=== PATIENT | female | born 1960 | race Caucasian/White ===

== ENCOUNTER 2017-02-10 18:09 | Emergency (ER) | payer OTHER ==
--- NOTE | 2017-02-10 19:06 | DIAGNOSTIC IMAGING REPORT ---
PROCEDURE: CT HEAD WITHOUT CONTRAST INDICATION: TRAUMA/INJURY TECHNIQUE: Noncontrast axial images with sagittal and coronal reformations. COMPARISON: Compared to a head CT and 06/07/2012. FINDINGS: There is evidence of mild old small vessel changes of the left frontal white matter (no change). Brain and ventricles are otherwise normal. No evidence of an acute process or hemorrhage. Sinuses and mastoids are normal. IMPRESSION: 1. Mild old small vessel changes of the left frontal white matter. Otherwise negative head CT. No evidence of intracranial injury. 2. Findings discussed with KASI Merlos at [address] scans at this facility use dose modulation, iterative reconstruction, and/or weight-based dosing when appropriate to reduce radiation dose to as low as reasonably achievable.
--- NOTE | 2017-02-10 20:37 | DIAGNOSTIC IMAGING REPORT ---
PROCEDURE: XR ANKLE 3 OR 4 VIEWS - LEFT INDICATION: TRAUMA/INJURY TECHNIQUE: Four views. COMPARISON: None. FINDINGS: There is a 9 mm dystrophic ossification lateral to the lateral malleolus, with possible old osteotomy of the distal fibula. Osseous structures and joint spaces are otherwise normal. IMPRESSION: 1. Findings suggest post-traumatic and possible postoperative changes of the left ankle. 2. Otherwise negative left ankle. No evidence of fracture.
--- NOTE | 2017-02-10 20:58 | DIAGNOSTIC IMAGING REPORT ---
PROCEDURE: XR FOOT 3 VIEWS - RIGHT INDICATION: TRAUMA/INJURY TECHNIQUE: Three views. COMPARISON: None. FINDINGS: There are mild degenerative changes of the right midfoot. Osseous structures and joint spaces are otherwise normal. There is marked soft tissue swelling of the dorsum of the right foot (suggest primary lymphedema). IMPRESSION: 1. Mild degenerative change of the right midfoot. 2. Soft tissue swelling of the dorsum of the right foot suggest primary lymphedema. 3. Otherwise negative right foot. 4. Findings discussed with KASI Merlos.
--- NOTE | 2017-02-10 21:12 | ED NURSING NOTES ---
Clinical Report - Nurses [facility] [address] [place] [address] 02/10/2017 18:09 Patient: JACOBY DEL VALLE TRIAGE Triage time 18:19. Acuity: LEVEL 4. Chief Complaint: FALL while walking, onto a hard surface and landed on their head; became dizzy (GLF). Alert. No acute distress. ( Pt. states she has a hx of getting dizzy and "passing out" every time she changed position from sitting to standing. Today she was getting out of the chair when she become dizzy and fell to the ground hitting her head on the buffet. Pt. states she does remembers getting dizzy but does not remember hitting her head. Pt. states, " I just woke up on the floor and was like oh man my head hurts and then my foot started hurting."). SEPSIS SCREEN: Sepsis Screen. Negative (no infection suspected/documented). [place] COMA SCORE: [place] Coma Scale: 15- eyes open spontaneously (4); best verbal response- oriented x 4 (5); best motor response- obeys commands (6). --18:30 Kathia Morse R.N. 18:19 02/10/17. BP: 121/85. HR: 81. RR: 18. O2 saturation: 97%. Temp: 98.5 F. Pain level now 9/10. --18:30 Kathia Morse R.N. ( Pt. states she has been having these "dizzy episodes for 10 years."). --18:35 Penny Renee R.N. Weight: 148.3 kg stated. Height/Length: 64 inches Per Patient. BMI: 56.2. --18:27 Kathia Morse R.N. Medications Atorvastatin Calcium Oral 40 mg, daily. --18:31 Penny Renee R.N. BuPROPion HBr Oral daily. FLUoxetine HCl Oral 90mg, daily. Gabapentin Oral 750mg, 3x a day. HumaLOG Subcutaneous. Lantus Subcutaneous. Lasix Oral 40 mg, daily. Levothyroxine Sodium Oral 1000mcg, daily. Losartan Potassium Oral 25 mg, daily. Metoprolol Tartrate Oral 50 mg, daily. Naproxen Oral 250 mg, Q12H. Omeprazole Oral 40 mg, 2x a day. --18:31 Penny Renee R.N. Flonase Nasal. --18:31 Penny Renee R.N. Albuterol Sulfate Inhalation. --18:31 Penny Renee R.N. The following entry was struck and corrected by Penny Renee R.N., 18:42 (02/10/17) Reason for correction - other(correction). <<STRICKEN ENTRY-- Omeprazole Oral. --18:31 Penny Renee R.N. --END STRIKE>> The following entry was struck and corrected by Penny Renee R.N., 18:41 (02/10/17) Reason for correction - other(correction). <<STRICKEN ENTRY-- Naproxen Oral. --18:31 Penny Renee R.N. --END STRIKE>> The following entry was struck and corrected by Penny Renee R.N., 18:41 (02/10/17) Reason for correction - other(correction). <<STRICKEN ENTRY-- Metoprolol Tartrate Oral. --18:31 Penny Renee R.N. --END STRIKE>> The following entry was struck and corrected by Penny Renee R.N., 18:41 (02/10/17) Reason for correction - other(correction). <<STRICKEN ENTRY-- Losartan Potassium Oral. --18:31 Penny Renee R.N. --END STRIKE>> The following entry was struck and corrected by Penny Renee R.N., 18:40 (02/10/17) Reason for correction - other(correction). <<STRICKEN ENTRY-- Levothyroxine Sodium Oral. --18:31 Penny Renee R.N. --END STRIKE>> The following entry was struck and corrected by Penny Renee R.N., 18:40 (02/10/17) Reason for correction - other(correction). <<STRICKEN ENTRY-- Lasix Oral. --18:31 Penny Renee R.N. --END STRIKE>> The following entry was struck and corrected by Penny Renee R.N., 18:40 (02/10/17) Reason for correction - other(correction). <<STRICKEN ENTRY-- Gabapentin Oral. --18:31 Penny Renee R.N. --END STRIKE>> The following entry was struck and corrected by Penny Renee R.NJones, 18:39 (02/10/17) Reason for correction - other(correction). <<STRICKEN ENTRY-- FLUoxetine HCl Oral. --18:31 Penny Renee R.N. --END STRIKE>> The following entry was struck and corrected by Penny Renee R.N., 18:39 (02/10/17) Reason for correction - other(correction). [facility] BuPROPion HBr Oral. --18:31 Penny Renee R.N. --END STRIKE>> The following entry was struck and corrected by Penny Renee R.N., 18:39 (02/10/17) Reason for correction - other(correction). <<STRICKEN ENTRY-- Atorvastatin Calcium Oral. --18:31 Penny Renee R.N. --END STRIKE>>. Allergies Morphine Sulfate. Definite Severe(anxiety, confusion) Sulfa Antibiotics. --18:31 Penny Renee R.N. Vancomycin. --18:31 Penny Renee R.N. History Arrived by private vehicle. Historian: patient. Accompanied by family. Primary physician (Dr. Elliott). Location of injuries: right parietal area, right foot and left foot. This occurred today. Treatment YOUTH CARE WORKER: None. PAST MEDICAL HX: Immunizations: up-to-date. SOCIAL HX: Never smoker. Alcohol use. (stopped drink at age 42). History of drug use: narcotics. ABUSE ASSESSMENT: Abuse assessment: The patient was asked "Do you feel safe in your home?" and "Has anyone hurt you or threatened to hurt you?". No report of abuse. SELF HARM ASSESSMENT: A self harm assessment was performed. The patient answered "no" to the question "Do you have thoughts of harming or killing yourself?" and "Have you recently had thoughts about harming or killing others?". NUTRITIONAL RISK ASSESSMENT: The nutritional risk assessment revealed no deficiencies. FUNCTIONAL ASSESSMENT: Functional assessment: no impairments noted. LEARNING NEEDS ASSESSMENT: The learning needs assessment revealed no barriers. FALL RISK ASSESSMENT: Fall risk assessment completed. Risk factors identified include dizziness and patient history of fall and impairment of mobility. Fall interventions initiated. Side rails up x2. Brakes on Bed in low position. Patient visible from nurses' station and identified as a fall risk by ID band. Family at bedside. Child being held by parent. Call light in reach of patient. Instructed not to get up without assistance. --18:30 Kathia Morse R.N. PROBLEMS: Contusion. Fall. Hypoglycemia. CVA - Cerebrovascular Accident. Thyroid Disease. GI Disease. Costochondritis. Abdominal Pain. Flank Pain. PICC line infection, treated with Vanco, but is now allergic to that. Neck Pain. Lumbar Strain. Back Pain. Gastroenteritis. Depression. Chest Wall Pain. Diarrhea. Knee Injury. Crohn's Disease. Obesity. Acute Pain. Headache. Diabetes Mellitus. --18:32 Penny Renee R.N. ADDITIONAL SURGERIES: Abdominoplasty. Breast reduction. Hysterectomy. Knee Surgery. Neck Surgery. Oophorectomy. Salpingectomy. Shoulder Surgery. Tonsillectomy. --18:32 Penny Renee R.N. Interventions ID band on patient. --18:30 Kathia Morse R.N. PHYSICAL ASSESSMENT To room via wheelchair. GENERAL / NEURO / PSYCH: Alert. Appears in no acute distress. RESPIRATORY: Respirations not labored. CVS: Capillary refill less than 2 seconds. EXTREMITIES: Bilateral 1+ pitting edema of the lower extremities. pulses WNL. SKIN: Skin intact. Skin is warm and dry. --18:34 Penny Renee R.N. NURSING PROGRESS NOTES Two patient identifiers checked. Call light placed in reach. Side rails up x 2. Bed placed in lowest position. Brakes of bed on. Patient ready for evaluation- chart flagged. --18:34 Penny Renee R.N. shelter monitor, pulse oximeter and NIBP monitor placed on patient; cardiac nurse- Lead II; monitor alarms on. --18:34 Penny Renee R.N. EKG time: (1826). EKG was ordered, performed by a tech and shown to the ED physician. --18:34 Penny Renee R.N. 18:46 02/10/2017 Site #1 started via IV in the left hand with an 22g angiocath, with aseptic technique and good blood return; one attempt. Blood drawn: rainbow set. Labeled in the presence of the patient and sent to the lab. Saline lock flushed with 10 mL saline (accessed by ANA Bae). --18:46 Penny Renee R.N. Point of care testing: performed by nurse. Glucose: 129. Result shown to the ED physician. --18:47 Penny Renee R.N. Patient transported to NE by stretcher with tech. --18:47 Penny Renee R.N. 19:21. Care transferred and report received. --19:21 Mateo Lorenzo R.N. 19:30 Patient standing at bedside with technical support associate orthostatic BP in process. --19:30 Mateo Lorenzo R.N. 19:36 02/10/17. BP: 121/85 (regular adult cuff) taken on the left arm, while lying. HR: 78. O2 saturation: 95% on room air. --19:47 Marilyn Harp 19:35 02/10/17. BP: 124/76 (regular adult cuff) taken on the left arm, while sitting. HR: 78. O2 saturation: 96% on room air. --19:49 Marilyn Harp 19:38 02/10/17. BP: 139/106 taken on the left arm, while standing. HR: 106. O2 saturation: 89% on room air. --19:51 Marilyn Harp 20:56 02/10/17. BP: 111/55 taken on the left arm, while lying. HR: 80. RR: 18. O2 saturation: 95% on room air. Temp: 97.8 F (oral). --20:58 Marilyn Harp 21:10 02/10/2017 Hydrocodone-APAP (Hydrocodone-Acetaminophen) PO 5/325 mg Tablets 1 tab given. Allergies verified, confirmed 5 rights and sedative warning given to the patient. --21:15 Mateo Lorenzo R.N. 21:44 02/10/2017 Started bag #1 1000 mL IV Fluids IV NS (Saline); bolus of 1000 mL over 1 hour(s) via site #1. Allergies verified and confirmed 5 rights. IV patency established. IV site checked: no pain, redness, or swelling. IV flushed thoroughly pre- and post-medication administration. --21:44 Tasneem Bernard R.N. 21:55 02/10/2017 Toradol IVP 30 mg given over 2 minute(s) via site #1. Allergies verified and confirmed 5 rights. IV patency established. IV site checked: no pain, redness, or swelling. IV flushed thoroughly pre- and post-medication administration. --21:59 Mateo Lorenzo R.N. 23:30. The patient is calm and resting quietly. GENERAL / NEURO / PSYCH: Alert. Oriented X 4. RESPIRATORY: No respiratory distress. EXTREMITIES: Neuro-vascular status intact to the extremity. --23:33 Mateo Lorenzo R.N. DISPOSITION / DISCHARGE 23:22 02/10/2017 IV Fluids IV NS Discontinued: bag #1 infused upon discharge. Total amount infused: 1000 mL. IV patency established. IV site checked: no pain, redness, or swelling. IV flushed thoroughly. --23:28 Mateo Lorenzo R.N. 23:25 02/10/2017 Site #1 removed upon discharge. Catheter intact. Bandage applied. --23:27 Mateo Lorenzo R.N. Departure time: 23:32. Condition at departure: stable. No learning barriers present. Discharge instructions provided and reviewed with the patient. Reviewed medication(s) side effects, precautions, dosing and course information. Prescription(s) given to the patient. Patient verbalized understanding. Written instructions provided in Thai. The patient was discharged home and accompanied by family. She left the Emergency Department ambulatory and via private vehicle. Family member driving. FALL RISK ASSESSMENT: Fall risk assessment completed. No fall risk identified. --23:32 Mateo Lorenzo R.N. 23:27 02/10/17. BP: 113/45. HR: 64. RR: 16. O2 saturation: 95% on room air. Pain level now: 03/18. --23:32 Mateo Lorenzo R.N. Locked/Released at 02/11/2017 2:50 by Mateo Lorenzo R.N.
--- NOTE | 2017-02-10 21:12 | ED NURSING NOTES ---
Clinical Report - Nurses [facility] [address] [place] [address] 02/10/2017 18:09 Patient: JACOBY DEL VALLE TRIAGE Triage time 18:19. Acuity: LEVEL 4. Chief Complaint: FALL while walking, onto a hard surface and landed on their head; became dizzy (GLF). Alert. No acute distress. ( Pt. states she has a hx of getting dizzy and "passing out" every time she changed position from sitting to standing. Today she was getting out of the chair when she become dizzy and fell to the ground hitting her head on the buffet. Pt. states she does remembers getting dizzy but does not remember hitting her head. Pt. states, " I just woke up on the floor and was like oh man my head hurts and then my foot started hurting."). SEPSIS SCREEN: Sepsis Screen. Negative (no infection suspected/documented). AZALEA COMA SCORE: [place] Coma Scale: 15- eyes open spontaneously (4); best verbal response- oriented x 4 (5); best motor response- obeys commands (6). --18:30 Kathia Morse R.N. 18:19 02/10/17. BP: 121/85. HR: 81. RR: 18. O2 saturation: 97%. Temp: 98.5 F. Pain level now 9/10. --18:30 Kathia Morse R.N. ( Pt. states she has been having these "dizzy episodes for 10 years."). --18:35 Penny Renee R.N. Weight: 148.3 kg stated. Height/Length: 64 inches Per Patient. BMI: 56.2. --18:27 Kathia Morse R.N. Medications Atorvastatin Calcium Oral 40 mg, daily. --18:31 Penny Renee R.N. BuPROPion HBr Oral daily. FLUoxetine HCl Oral 90mg, daily. Gabapentin Oral 750mg, 3x a day. HumaLOG Subcutaneous. Lantus Subcutaneous. Lasix Oral 40 mg, daily. Levothyroxine Sodium Oral 1000mcg, daily. Losartan Potassium Oral 25 mg, daily. Metoprolol Tartrate Oral 50 mg, daily. Naproxen Oral 250 mg, Q12H. Omeprazole Oral 40 mg, 2x a day. --18:31 Penny Renee R.N. Flonase Nasal. --18:31 Penny Renee R.N. Albuterol Sulfate Inhalation. --18:31 Penny Renee R.N. The following entry was struck and corrected by Penny Renee R.N., 18:42 (02/10/17) Reason for correction - other(correction). <<STRICKEN ENTRY-- Omeprazole Oral. --18:31 Penny Renee R.N. --END STRIKE>> The following entry was struck and corrected by Penny Renee R.N., 18:41 (02/10/17) Reason for correction - other(correction). <<STRICKEN ENTRY-- Naproxen Oral. --18:31 Penny Renee R.N. --END STRIKE>> The following entry was struck and corrected by Penny Renee R.N., 18:41 (02/10/17) Reason for correction - other(correction). <<STRICKEN ENTRY-- Metoprolol Tartrate Oral. --18:31 Penny Renee R.N. --END STRIKE>> The following entry was struck and corrected by Penny Renee R.N., 18:41 (02/10/17) Reason for correction - other(correction). <<STRICKEN ENTRY-- Losartan Potassium Oral. --18:31 Penny Renee R.N. --END STRIKE>> The following entry was struck and corrected by Penny Renee R.N., 18:40 (02/10/17) Reason for correction - other(correction). <<STRICKEN ENTRY-- Levothyroxine Sodium Oral. --18:31 Penny Renee R.N. --END STRIKE>> The following entry was struck and corrected by Penny Renee R.N., 18:40 (02/10/17) Reason for correction - other(correction). <<STRICKEN ENTRY-- Lasix Oral. --18:31 Penny Rneee R.N. --END STRIKE>> The following entry was struck and corrected by Penny Renee R.N., 18:40 (02/10/17) Reason for correction - other(correction). <<STRICKEN ENTRY-- Gabapentin Oral. --18:31 Penny Renee R.N. --END STRIKE>> The following entry was struck and corrected by Penny Renee R.NJones, 18:39 (02/10/17) Reason for correction - other(correction). <<STRICKEN ENTRY-- FLUoxetine HCl Oral. --18:31 Penny Renee R.N. --END STRIKE>> The following entry was struck and corrected by Penny Renee R.N., 18:39 (02/10/17) Reason for correction - other(correction). [facility] Bu[facility]Br Oral. --18:31 Penny Renee R.N. --END STRIKE>> The following entry was struck and corrected by Penny Renee R.N., 18:39 (02/10/17) Reason for correction - other(correction). <<STRICKEN ENTRY-- Atorvastatin Calcium Oral. --18:31 Penny Renee R.N. --END STRIKE>>. Allergies Morphine Sulfate. Definite Severe(anxiety, confusion) Sulfa Antibiotics. --18:31 Penny Renee R.N. Vancomycin. --18:31 Penny Renee R.N. History Arrived by private vehicle. Historian: patient. Accompanied by family. Primary physician (Dr. Elliott). Location of injuries: right parietal area, right foot and left foot. This occurred today. Treatment TROMPER: None. PAST MEDICAL HX: Immunizations: up-to-date. SOCIAL HX: Never smoker. Alcohol use. (stopped drink at age 42). History of drug use: narcotics. ABUSE ASSESSMENT: Abuse assessment: The patient was asked "Do you feel safe in your home?" and "Has anyone hurt you or threatened to hurt you?". No report of abuse. SELF HARM ASSESSMENT: A self harm assessment was performed. The patient answered "no" to the question "Do you have thoughts of harming or killing yourself?" and "Have you recently had thoughts about harming or killing others?". NUTRITIONAL RISK ASSESSMENT: The nutritional risk assessment revealed no deficiencies. FUNCTIONAL ASSESSMENT: Functional assessment: no impairments noted. LEARNING NEEDS ASSESSMENT: The learning needs assessment revealed no barriers. FALL RISK ASSESSMENT: Fall risk assessment completed. Risk factors identified include dizziness and patient history of fall and impairment of mobility. Fall interventions initiated. Side rails up x2. Brakes on Bed in low position. Patient visible from nurses' station and identified as a fall risk by ID band. Family at bedside. Child being held by parent. Call light in reach of patient. Instructed not to get up without assistance. --18:30 Kathia Morse R.N. PROBLEMS: Contusion. Fall. Hypoglycemia. CVA - Cerebrovascular Accident. Thyroid Disease. GI Disease. Costochondritis. Abdominal Pain. Flank Pain. PICC line infection, treated with Vanco, but is now allergic to that. Neck Pain. Lumbar Strain. Back Pain. Gastroenteritis. Depression. Chest Wall Pain. Diarrhea. Knee Injury. Crohn's Disease. Obesity. Acute Pain. Headache. Diabetes Mellitus. --18:32 Penny Renee R.N. ADDITIONAL SURGERIES: Abdominoplasty. Breast reduction. Hysterectomy. Knee Surgery. Neck Surgery. Oophorectomy. Salpingectomy. Shoulder Surgery. Tonsillectomy. --18:32 Penny Renee R.N. Interventions ID band on patient. --18:30 Kathia Morse R.N. PHYSICAL ASSESSMENT To room via wheelchair. GENERAL / NEURO / PSYCH: Alert. Appears in no acute distress. RESPIRATORY: Respirations not labored. CVS: Capillary refill less than 2 seconds. EXTREMITIES: Bilateral 1+ pitting edema of the lower extremities. pulses WNL. SKIN: Skin intact. Skin is warm and dry. --18:34 Penny Renee R.N. NURSING PROGRESS NOTES Two patient identifiers checked. Call light placed in reach. Side rails up x 2. Bed placed in lowest position. Brakes of bed on. Patient ready for evaluation- chart flagged. --18:34 Penny Renee R.N. security monitor, pulse oximeter and NIBP monitor placed on patient; traffic monitor specialist- Lead II; monitor alarms on. --18:34 Penny Renee R.N. EKG time: (1826). EKG was ordered, performed by a tech and shown to the ED physician. --18:34 Penny Renee R.N. 18:46 02/10/2017 Site #1 started via IV in the left hand with an 22g angiocath, with aseptic technique and good blood return; one attempt. Blood drawn: rainbow set. Labeled in the presence of the patient and sent to the lab. Saline lock flushed with 10 mL saline (accessed by ANA Bae). --18:46 Penny Renee R.N. Point of care testing: performed by nurse. Glucose: 129. Result shown to the ED physician. --18:47 Penny Renee R.N. Patient transported to [place] by stretcher with tech. --18:47 Penny Renee R.N. 19:21. Care transferred and report received. --19:21 Mateo Lorenzo R.N. 19:30 Patient standing at bedside with rad tech orthostatic BP in process. --19:30 Mateo Lorenzo R.N. 19:36 02/10/17. BP: 121/85 (regular adult cuff) taken on the left arm, while lying. HR: 78. O2 saturation: 95% on room air. --19:47 Marilyn Harp 19:35 02/10/17. BP: 124/76 (regular adult cuff) taken on the left arm, while sitting. HR: 78. O2 saturation: 96% on room air. --19:49 Marilyn Harp 19:38 02/10/17. BP: 139/106 taken on the left arm, while standing. HR: 106. O2 saturation: 89% on room air. --19:51 Marilyn Harp 20:56 02/10/17. BP: 111/55 taken on the left arm, while lying. HR: 80. RR: 18. O2 saturation: 95% on room air. Temp: 97.8 F (oral). --20:58 Marilyn Harp 21:10 02/10/2017 Hydrocodone-APAP (Hydrocodone-Acetaminophen) PO 5/325 mg Tablets 1 tab given. Allergies verified, confirmed 5 rights and sedative warning given to the patient. --21:15 Mateo Lorenzo R.N. 21:44 02/10/2017 Started bag #1 1000 mL IV Fluids IV NS (Saline); bolus of 1000 mL over 1 hour(s) via site #1. Allergies verified and confirmed 5 rights. IV patency established. IV site checked: no pain, redness, or swelling. IV flushed thoroughly pre- and post-medication administration. --21:44 Tasneem Bernard R.N. 21:55 02/10/2017 Toradol IVP 30 mg given over 2 minute(s) via site #1. Allergies verified and confirmed 5 rights. IV patency established. IV site checked: no pain, redness, or swelling. IV flushed thoroughly pre- and post-medication administration. --21:59 Mateo Lorenzo R.N. 23:30. The patient is calm and resting quietly. GENERAL / NEURO / PSYCH: Alert. Oriented X 4. RESPIRATORY: No respiratory distress. EXTREMITIES: Neuro-vascular status intact to the extremity. --23:33 Mateo Lorenzo R.N. DISPOSITION / DISCHARGE 23:22 02/10/2017 IV Fluids IV NS Discontinued: bag #1 infused upon discharge. Total amount infused: 1000 mL. IV patency established. IV site checked: no pain, redness, or swelling. IV flushed thoroughly. --23:28 Mateo Lorenzo R.N. 23:25 02/10/2017 Site #1 removed upon discharge. Catheter intact. Bandage applied. --23:27 Mateo Lorenzo R.N. Departure time: 23:32. Condition at departure: stable. No learning barriers present. Discharge instructions provided and reviewed with the patient. Reviewed medication(s) side effects, precautions, dosing and course information. Prescription(s) given to the patient. Patient verbalized understanding. Written instructions provided in Telugu. The patient was discharged home and accompanied by family. She left the Emergency Department ambulatory and via private vehicle. Family member driving. FALL RISK ASSESSMENT: Fall risk assessment completed. No fall risk identified. --23:32 Mateo Lorenzo R.N. 23:27 02/10/17. BP: 113/45. HR: 64. RR: 16. O2 saturation: 95% on room air. Pain level now: 03/18. --23:32 Mateo Lorenzo R.N. Locked/Released at 02/11/2017 2:50 by Mateo Lorenzo R.N.
--- NOTE | 2017-02-10 21:12 | ED CLINICAL REPORT ---
Clinical Report - Physicians/Mid Levels [facility] [address] [place] [address] 02/10/2017 18:09 Patient: JACOBY DEL VALLE Time Seen: 1820; upon arrival, initial patient contact, initial documentation, patient care assumed. Arrived- By private vehicle. Historian- patient. HISTORY OF PRESENT ILLNESS The patient has recovered. Chief Complaint: SINGLE SYNCOPAL EPISODE. This occurred about 10 years ago. Event was witnessed. The patient felt faint, lost consciousness and collapsed. No seizure activity, incontinence or apnea noted. Did not lose pulse. At time of event, she had just stood up. Experienced repeated episodes of syncope. The episode was brief and lasted seconds. Location of injuries- head, right foot and left ankle and left foot. Currently she does not feel normal. No weakness currently. No nausea currently. No headache currently. 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 Similar symptoms previously: Frequently, as bad. ( says she has been to dr several times for these events, and they do not know what is wrong or why she passes out, in past her blood sugar was blamed for it). Recent medical care: Not recently seen/assessed. REVIEW OF SYSTEMS No headache, weakness, chest pain, abdominal pain or vomiting. No diarrhea, numbness or fever. She has had dizziness. All systems otherwise negative, except as recorded above. PAST HISTORY See nurses notes. ( PROBLEMS: Contusion. Fall. Hypoglycemia. CVA - Cerebrovascular Accident. Thyroid Disease. GI Disease. Costochondritis. Abdominal Pain. Flank Pain. PICC line infection, treated with Vanco, but is now allergic to that. Neck Pain. Lumbar Strain. Back Pain. Gastroenteritis. Depression. Chest Wall Pain. Diarrhea. Knee Injury. Crohn's Disease. Obesity. Acute Pain. Headache. Diabetes Mellitus. --18:32 Penny Renee RJonesN. ADDITIONAL SURGERIES: Abdominoplasty. Breast reduction. Hysterectomy. Knee Surgery. Neck Surgery. Oophorectomy. Salpingectomy. Shoulder Surgery. Tonsillectomy. --18:32 Penny Renee R.N.). SOCIAL HISTORY Never smoker. Occasional alcohol use. History of drug use no narcs in a year: narcotics. Is a recovering addict. No recent travel. Is a local resident. FAMILY HISTORY Negative. ADDITIONAL NOTES The nursing notes have been reviewed with agreement regarding the chief complaint, HPI, ROS, PMH and patient medications and allergies. PHYSICAL EXAM Vital Signs: 02/10/2017 18:19 BP: 121/85. HR: 81. RR: 18. O2 saturation: 97%. Temp: 98.5 F. Have been reviewed as normal and appear to be correct. Appearance: Alert. No acute distress. Head: Tenderness. No ecchymosis. Mild swelling in the right parietal region. Eyes: Pupils equal, round and reactive to light. No nystagmus. Extraocular movements normal. ENT: ENT inspection not normal. TM's normal. Moist mucous membranes. Pharynx normal. No depression of the gag reflex. No trouble handling secretions or injury to the tongue. Neck: Normal inspection. Neck supple. CVS: Normal heart rate and rhythm. Heart sounds normal. Pulses normal. Respiratory: No respiratory distress. Breath sounds normal. Abdomen: Severely obese. Back: Normal inspection. Skin: Skin warm and dry. Normal skin color. No rash. Normal skin turgor. Extremities: Extremities exhibit normal ROM. No lower extremity edema. (Contusion noted to top of R foot distal 4 and 5 metatarsals, L foot and lower ankle contusion, entire foot discolored and tender). Neuro: Alert. Oriented X 3. Mood/affect normal. Speech normal. Cranial nerves normal (as tested). No cerebellar findings. No motor deficit. No sensory deficit. LABS, X-RAYS, AND EKG EKG: EKG time: (1826). No acute process. No acute ischemia. Normal EKG. Normal EKG. The study has been interpreted contemporaneously by me (and dr hightower). The EKG appears to be a good tracing. Interpretation time: 1828. X-Rays: Right foot. Left ankle. Left foot. The X-rays were interpreted by the radiologist and contemporaneously by me and discussed with the radiologist. CT Head: . (IMPRESSION: 1. Mild old small vessel changes of the left frontal white matter. Otherwise negative head CT. No evidence of intracranial injury. 2. Findings discussed with KASI Merlos at [address] scans at this facility use dose modulation, iterative reconstruction, and/or weight-based dosing when appropriate to reduce radiation dose to as low as reasonably achievable. Electronically Final signed by:Sathish Hendricks MD 02/10/2017 7:02:29 PM). The study was interpreted by the radiologist and discussed with the radiologist. Laboratory Tests: CBC w Diff: (KIP: 02/10/2017 17:40) ( MsgRcvd 02/10/2017 19:09) Final results Test Result Flag Units (Reference) WHITE BLOOD COUNT 7.8 K/uL (4.5-11.5) RED BLOOD COUNT 4.24 M/uL (4.00-5.20) HEMOGLOBIN 10.9 L gm/dL (12.0-16.0) HEMATOCRIT 33.6 L % (36.0-46.0) MEAN CELL VOLUME 79 L fL (80-100) MEAN CORPUSCULAR HGB 26 pg (26-34) MEAN CORPUSCULAR HGB CONC 32 g/dL (31-37) RED CELL DISTRIBUTION WIDTH 14.9 H % (11.6-14.8) PLATELET COUNT 301 K/uL (150-400) NEUTROPHIL % 60.3 % (50-75) LYMPH % 29.2 % (25-40) MONO % 6.4 % (3-14) EOSINOPHIL % 2.8 % (0-4) BASOPHIL % 1.3 % (0-2) CMP: (KIP: 02/10/2017 17:40) ( MsgRcvd 02/10/2017 19:57) Final results Test Result Flag Units (Reference) GLUCOSE 143 H mg/dL (70-110) BUN 17 mg/dL (7-18) CREATININE 0.9 mg/dL (0.6-1.3) Estimated GFR >60 mL/min Estimated GFR- >60 mL/min Note: Persistent reduction over 3 months in eGFR<60 mL/min/1.73 m2 defines CKD. Patients with eGFR values>=60 mL/min/1.73 m2 may also have CKD if evidence ofpersistent proteinuria. Additional information may be foundat www.kidney.org. SODIUM 142 mmol/L (136-145) POTASSIUM 3.9 mmol/L (3.5-5.1) CHLORIDE 104 mmol/L (98-107) CARBON DIOXIDE 28 mmol/L (21-32) CALCIUM 8.8 mg/dL (8.5-10.1) TOTAL PROTEIN 6.6 g/dL (6.4-8.2) ALBUMIN 3.7 g/dL (3.3-5.0) BILIRUBIN, TOTAL 0.3 mg/dL (0.0-1.0) ALKALINE PHOSPHATASE 107 U/L (46-116) AST (SGOT) 18 U/L (15-37) ALT (SGPT) 28 U/L (12-78) CPK 145 U/L (24-260) TROPONIN I <0.05 L ng/mL (0.00-1.5) TROPONIN REFERENCE RANGE:<0.1 NEGATIVE0.1-1.5 INDETERMINANT>1.5 POSITIVE . Note - Tests: (IMPRESSION: 1. Mild degenerative change of the right midfoot. 2. Soft tissue swelling of the dorsum of the right foot suggest primary lymphedema. 3. Otherwise negative right foot. 4. Findings discussed with KASI Merlos. Electronically Final signed by:Sathish Hendricks MD 02/10/2017 8:55:45 PM IMPRESSION: 1. Findings suggest post-traumatic and possible postoperative changes of the left ankle. 2. Otherwise negative left ankle. No evidence of fracture. Electronically Final signed by:Sathish Hendricks MD 02/10/2017 8:34:01 PM). PROGRESS AND PROCEDURES Course of Care: 21:06 02/10/17. 19:36 02/10/17. BP: 121/85 (regular adult cuff) taken on the left arm, while lying. HR: 78. O2 saturation: 95% on room air. --19:47 Marilyn Harp 19:35 02/10/17. BP: 124/76 (regular adult cuff) taken on the left arm, while sitting. HR: 78. O2 saturation: 96% on room air. --19:49 Marilyn Harp 19:38 02/10/17. BP: 139/106 taken on the left arm, while standing. HR: 106. O2 saturation: 89% on room air. --19:51 Marilyn Harp waited over and hour for orthos to be done, carl did not report them to me, and seeing results now after reading thru chart, spoke to carl Sanders regarding this and that orthos should have been reported to me hattie because pt had pos tilt. 02/10/2017 20:56 BP: 111/55. HR: 80. RR: 18. O2 saturation: 95%. Temp: 97.8 F. Vital Signs: have been reviewed as normal and appear to be correct. Patient counseled in person regarding the patient's stable condition, test results and diagnosis. 20:20. Differential Diagnosis: I considered situational stimulus, micturition, cough, sneezing, swallowing, post-prandial state, cardiac sinus hypersensitivity, sudden postural change, hypovolemia, autonomic neuropathy, adrenal insufficiency, arrhythmia, heart block, myocardial infarction, aortic stenosis, cardiac myxoma, left ventricular dysfunction, aortic dissection, pulmonary hypertension, pulmonary stenosis, seizure, hypoxia, hypoglycemia, basivertebral TIA and hysteria as a possible cause of syncope in this patient. This is a partial list of diagnoses considered. Above considerations are based on history, physical exam, reassessment, laboratory data, EKG and other information. Differential diagnosis was discussed with patient. Disposition: Discharged home in good and improved condition (21:12). Condition: good and stable. CLINICAL IMPRESSION Postural syncope .12 lead EKG performed. Multiple contusions to the right foot and left ankle and left foot.No hematoma or skin abrasion. INSTRUCTIONS Warnings: GENERAL WARNINGS: Return or contact your physician immediately if your condition worsens or changes unexpectedly, if not improving as expected, or if other problems arise. SPECIFICALLY, return if you develop chest pain, neck pain, jaw pain, shoulder pain, arm pain, back pain, fluttering sensation in your chest, lightheadedness, fainting, numbness, weakness or extreme fatigue. Prescription Medications: Naprosyn 500 mg tablets: take 1 orally every 12 hours as needed for pain. Dispense twenty (20). No refills. Substitution is permissible. Follow-up: Follow up with your doctor in two days even if well. Call for an appointment. Summary of care provided to patient. Understanding of the discharge instructions verbalized by patient. (Electronically signed by Dania Brian A.R.N.P. 02/11/2017 12:58)
--- NOTE | 2017-02-10 21:13 | ED ORDER SUMMARY ---
..... Patient: JACOBY DEL VALLE OrderSheet [facility] VisitID: [id number] [address] [place] [address] 56y, F Registration Date/Time: 02/10/2017 ORDER SHEET Weight: 148.3 kg (stated) Allergies: Morphine Sulfate, Sulfa Antibiotics, Vancomycin GENERAL ORDERS: Pipeliner (Continuous) (18:24 02/10/2017 HBivens A.R.N.P.) (18:35 SReitz R.N.) CT Head wo Cont Urgent (18:25 02/10/2017 HBivens A.R.N.P.) (Ack 18:27 KHoerner) (19:18 KHoerner) Ankle 3 or 4V Left Urgent (18:25 02/10/2017 HBivens A.R.N.P.) (Ack 18:27 KHoerner) (19:18 KHoerner) Foot 3V Right Urgent (18:25 02/10/2017 HBivens A.R.N.P.) (Ack 18:27 KHoerner) (19:18 KHoerner) Foot 3V Left Urgent (18:25 02/10/2017 HBivens A.R.N.P.) (Ack 18:27 KHoerner) (19:18 KHoerner) CBC w Diff Urgent (18:25 02/10/2017 HBivens A.R.N.P.) (Ack 18:27 KHoerner) (18:47 SReitz R.N.) CMP Urgent (18:25 02/10/2017 HBivens A.R.N.P.) (Ack 18:27 KHoerner) (18:47 SReitz R.N.) CPK Urgent (18:25 02/10/2017 HBivens A.R.N.P.) (Ack 18:27 KHoerner) (18:47 SReitz R.N.) Troponin-I Urgent (18:25 02/10/2017 HBivens A.R.N.P.) (Ack 18:27 KHoerner) (18:47 SReitz R.N.) EKG - ER Stat (18:25 02/10/2017 HBivens A.R.N.P.) (Ack 18:27 Edouard) (18:34 SReitz R.N.) Vitals - Orthostatic (18:25 02/10/2017 HBivens A.R.N.P.) (Ack 19:06 NIHARIKAoecamacho) (19:51 CHategekimana) MEDICATION ORDERS: Hydrocodone-APAP PO 5/325 mg (NOW, HIGH ALERT MEDICATION) (21:08 02/10/2017 JQuivey R.N. verbal order read back to HBivens A.R.N.P.) (21:15 JQuivey R.N.) IV FLUIDS: IV Saline Lock (18:25 02/10/2017 HBivens A.R.N.P.) (Ack 18:35 Christineitz R.N.) (19:34 JQuivey R.N.) IV NS : initial bolus 1000 mL (1000 mL/hr), then none - (NOW) (21:02/10/2017 HBivens A.R.N.P.) (Ack 21:15 JQuivey R.N.) (21:44 ANNEnebel R.N.) Toradol IV 30 mg (NOW) (21:02/10/2017 HBivens A.R.N.P.) (Ack 21:16 JQuivey R.N.) (21:59 JQuivey R.N.) ORDER SHEET NOTES: [Electronically signed by Mateo Lorenzo R.N. (02:50 02/11/2017)] [Electronically signed by Dania Brian.R.N.P. (12:58 02/11/2017)] [Electronically locked/signed by Mateo Lorenzo R.N. (02:50 02/11/2017)]
--- NOTE | 2017-02-10 21:13 | ED ORDER SUMMARY ---
..... Patient: JACOBY DEL VALLE OrderSheet [facility] VisitID: [id number] [address] [place] [address] 56y, F Registration Date/Time: 02/10/2017 ORDER SHEET Weight: 148.3 kg (stated) Allergies: Morphine Sulfate, Sulfa Antibiotics, Vancomycin GENERAL ORDERS: Patient Care Assistant (Continuous) (18:24 02/10/2017 HBivens A.R.N.P.) (18:35 SReitz R.N.) CT Head wo Cont Urgent (18:25 02/10/2017 HBivens A.R.N.P.) (Ack 18:27 KHoerner) (19:18 KHoerner) Ankle 3 or 4V Left Urgent (18:25 02/10/2017 HBivens A.R.N.P.) (Ack 18:27 KHoerner) (19:18 KHoerner) Foot 3V Right Urgent (18:25 02/10/2017 HBivens A.R.N.P.) (Ack 18:27 KHoerner) (19:18 KHoerner) Foot 3V Left Urgent (18:25 02/10/2017 HBivens A.R.N.P.) (Ack 18:27 KHoerner) (19:18 KHoerner) CBC w Diff Urgent (18:25 02/10/2017 HBivens A.R.N.P.) (Ack 18:27 KHoerner) (18:47 SReitz R.N.) CMP Urgent (18:25 02/10/2017 HBivens A.R.N.P.) (Ack 18:27 KHoerner) (18:47 SReitz R.N.) CPK Urgent (18:25 02/10/2017 HBivens A.R.N.P.) (Ack 18:27 KHoerner) (18:47 SReitz R.N.) Troponin-I Urgent (18:25 02/10/2017 HBivens A.R.N.P.) (Ack 18:27 KHoerner) (18:47 SReitz R.N.) EKG - ER Stat (18:25 02/10/2017 HBivens A.R.N.P.) (Ack 18:27 Edouard) (18:34 SReitz R.N.) Vitals - Orthostatic (18:25 02/10/2017 HBivens A.R.N.P.) (Ack 19:06 NIHARIKAoecamacho) (19:51 CHategekimana) MEDICATION ORDERS: Hydrocodone-APAP PO 5/325 mg (NOW, HIGH ALERT MEDICATION) (21:08 02/10/2017 JQuivey R.N. verbal order read back to HBivens A.R.N.P.) (21:15 JQuivey R.N.) IV FLUIDS: IV Saline Lock (18:25 02/10/2017 HBivens A.R.N.P.) (Ack 18:35 Christineitz R.N.) (19:34 JQuivey R.N.) IV NS : initial bolus 1000 mL (1000 mL/hr), then none - (NOW) (21:02/10/2017 HBivens A.R.N.P.) (Ack 21:15 JQuivey R.N.) (21:44 ANNEnebel R.N.) Toradol IV 30 mg (NOW) (21:02/10/2017 HBivens A.R.N.P.) (Ack 21:16 JQuivey R.N.) (21:59 JQuivey R.N.) ORDER SHEET NOTES: [Electronically signed by Mateo Lorenzo R.N. (02:50 02/11/2017)] [Electronically signed by Dania Brian.R.N.P. (12:58 02/11/2017)] [Electronically locked/signed by Mateo Lorenzo R.N. (02:50 02/11/2017)]
--- NOTE | 2017-02-10 22:41 | DIAGNOSTIC IMAGING REPORT ---
PROCEDURE: XR FOOT 3 VIEWS - LEFT INDICATION: TRAUMA/INJURY TECHNIQUE: Three views. COMPARISON: None. FINDINGS: There mild degenerative changes of the left midfoot. Osseous structures and joint spaces are otherwise normal. Soft tissue edema of the dorsum of the left foot suggest primary lymphedema. IMPRESSION: 1. Mild degenerative changes. 2. Soft tissue swelling of the dorsum of the left foot suggest primary lymphedema. 3. Otherwise negative left foot. 4. Findings discussed with KASI Merlos.
--- NOTE | 2017-02-11 12:59 | ED MED RECONCILIATION SUMMARY ---
Patient: JACOBY DEL VALLE Medication Reconciliation Report [facility] VisitID: [id number] [address] [place] [address] 56y, F Registration Date/Time: 02/10/2017 Weight: 148.3 kg Height/Length: 64 in. BMI: 56.2 ALLERGIES: Morphine Sulfate, Sulfa Antibiotics, Vancomycin The patient's Home Medications are listed below: THE FOLLOWING MEDICATIONS NEED TO BE RECONCILED: Albuterol Sulfate Inhalation Atorvastatin Calcium Oral 40 mg, daily BuPROPion HBr Oral daily Flonase Nasal FLUoxetine HCl Oral 90mg, daily Gabapentin Oral 750mg, 3x a day HumaLOG Subcutaneous Lantus Subcutaneous Lasix Oral 40 mg, daily Levothyroxine Sodium Oral 1000mcg, daily Losartan Potassium Oral 25 mg, daily Metoprolol Tartrate Oral 50 mg, daily Naproxen Oral 250 mg, Q12H Omeprazole Oral 40 mg, 2x a day The source(s) of the original Home Medication information: Not obtained. The following Medications were given to the patient in the Emergency Department: Hydrocodone-APAP [PO] PO 1 tab, administered: 02/10/2017 9:10:00 PM IV NS IV Fluids bolus 1000 mL over 1 hour(s), administered: 02/10/2017 9:44:00 PM Toradol [IVP] IVP 30 mg, administered: 02/10/2017 9:55:00 PM The following Medications were prescribed to the patient: Naprosyn 500 mg tablets: take 1 orally every 12 hours as needed for pain. Dispense twenty (20). No refills. Substitution is permissible. -- Dania Brian A.R.NJonesP.
--- NOTE | 2017-02-11 12:59 | ED MAR SUMMARY ---
..... Medication Administration Record [facility] [address] [place] [address] Patient: JACOBY DEL VALLE Visit ID: [id number] 56y, F Weight: 148.3 kg Height/Length: 64 in BMI: 56.2 ALLERGIES: Morphine Sulfate, Sulfa Antibiotics, Vancomycin Given 21:10 02/10/2017 Mateo Lorenzo RJonesNJones Medication Administered: HYDROCODONE-APAP [PO] (HYDROCODONE-ACETAMINOPHEN), Dose: 1 tab 5/325 mg Tablets PO. Medication Ordered: Hydrocodone-APAP PO 5/325 mg (NOW, HIGH ALERT MEDICATION). Start 21:44 02/10/2017 Tasneem Bernard R.N., Stop 23:22 02/10/2017 Mateo Lorenzo RJonesN. Medication Administered: IV NS (SALINE), Dose: IV Fluids, Bolus: 1000 mL over 1 hour(s), Dispensed: 1000 mL bag, Site: #1 left hand. Medication Ordered: IV NS : initial bolus 1000 mL (1000 mL/hr), then none - (NOW). Given 21:55 02/10/2017 Mateo Lorenzo RJoensNJones Medication Administered: TORADOL [IVP], Dose: 30 mg IVP over 2 minute(s), Site: #1 left hand. Medication Ordered: Toradol IV 30 mg (NOW).
--- NOTE | 2017-02-11 12:59 | ED DISCHARGE INSTRUCTIONS ---
Patient: JACOBY DEL VALLE General Instructions [facility] VisitID: [id number] [address] [place] [address] 56y, F Registration Date/Time: 02/10/2017 Postural syncope .12 lead EKG performed. Multiple contusions to the right foot and left ankle and left foot.No hematoma or skin abrasion. INSTRUCTIONS Warnings: GENERAL WARNINGS: Return or contact your physician immediately if your condition worsens or changes unexpectedly, if not improving as expected, or if other problems arise. SPECIFICALLY, return if you develop chest pain, neck pain, jaw pain, shoulder pain, arm pain, back pain, fluttering sensation in your chest, lightheadedness, fainting, numbness, weakness or extreme fatigue. Prescription Medications: Naprosyn 500 mg tablets: take 1 orally every 12 hours as needed for pain. Dispense twenty (20). No refills. Substitution is permissible. Follow-up: Follow up with your doctor in two days even if well. Call for an appointment. Summary of care provided to patient. Understanding of the discharge instructions verbalized by patient. ADDITIONAL INFORMATION Fainting:Vagal Reaction Fainting (syncope) is a temporary loss of consciousness ("passing out"). It occurs when blood flow to the brain is reduced. Your doctor believes that your episode was due to a vagal reaction. This condition is not a sign of serious disease. A vagal reaction is a reflex response that causes the pulse to slow down or the blood vessels to dilate. This causes the blood pressure to fall, reducing the blood flow to the brain if you are standing or sitting. That results in dizziness, near-fainting or fainting. Lying down usually stops the reaction within 60 seconds. This reflex response can occur during sudden fear, severe pain, emotional stress, overexertion, overheating, hunger, nausea or vomiting, prolonged standing or standing up after sitting or lying for a long time. Home Care: 1) Rest today and resume your normal activities as soon as you are feeling back to normal. 2) If you become light-headed or dizzy, lie down immediately or sit with your head lowered between your knees. Follow Up with your doctor as instructed. Get Prompt Medical Attention if any of the following occur: -- Another fainting spell occurs, which is not explained by the common causes listed above -- Chest, arm, neck, jaw, back or abdominal pain -- Shortness of breath -- Severe headache or seizure -- Blood in vomit, stools (black or red color) -- Unexpected vaginal bleeding -- Palpitations (very rapid or very slow or irregular heart beat) -- Signs of stroke: Weakness of an arm or leg or one side of the face Difficulty with speech or vision Extreme drowsiness, confusion, dizziness or fainting Fainting:Uncertain Cause Fainting (syncope) is a temporary loss of consciousness ("passing out"). It occurs when blood flow to the brain is reduced. Near-fainting ("near-syncope") is very similar to fainting, but you do not fully "pass out". The common minor causes of fainting include: sudden fear, pain, nausea, emotional stress and overexertion. Suddenly standing up after sitting or lying for a long time can also cause fainting. The more serious causes for fainting are due to either a very slow or very fast or very slow heart beat ("arrhythmia"), other types of heart disease, dehydration, blood loss, seizure, stroke or ruptured blood vessel in the brain. Taking too much high blood pressure medicine can also cause low blood pressure and fainting. The exact cause of your episode is not certain. However, the tests today did not show any of the serious causes of fainting. Sometimes further testing is needed to find out if a serious problem exists. Therefore, it is important that you follow-up with your doctor as advised. Home Care: 1) Rest today. You may resume your normal activities when you are feeling back to normal. It is best to remain with someone who can check on you for the next 24 hours to watch for another episode of fainting. 2) If you become light-headed or dizzy, lie down immediately or sit with your head between your knees. 3) Because we do not know the exact cause of your near fainting spell, it is possible for another spell to occur without warning. Therefore, do not drive a car or operate dangerous equipment, do not take a bath alone (use a shower instead) and do not swim alone until your doctor says that you are no longer in danger of having another fainting spell. Follow Up with your doctor as advised. Get Prompt Medical Attention if any of the following occur: -- Another fainting spell occurs, which is not explained by the common causes listed above -- Chest, arm, neck, jaw, back or abdominal pain -- Shortness of breath -- Severe headache or seizure -- Blood in vomit, stools (black or red color) -- Unexpected vaginal bleeding -- Palpitations (very rapid or very slow or irregular heart beat) -- Signs of stroke: Weakness of an arm or leg or one side of the face Difficulty with speech or vision Extreme drowsiness, confusion, dizziness or fainting Contusion,Soft Tissue You have a CONTUSION, which is a bruise with swelling and some bleeding under the skin. There are no broken bones. This injury takes a few days to a few weeks to heal. Home Care: 1) Keep the injured part elevated to reduce pain and swelling. This is especially important during the first 48 hours. 2) Make an ice pack (ice cubes in a plastic bag, wrapped in a towel) and apply for 20 minutes every 1-2 hours the first day. Continue this 3-4 times a day until the pain and swelling goes away. 3) You may use acetaminophen (Tylenol) or ibuprofen (Motrin, Advil) to control pain, unless another pain medicine was prescribed. [ NOTE : If you have chronic liver or kidney disease or ever had a stomach ulcer or GI bleeding, talk with your doctor before using these medicines.] Follow Up with your doctor or this facility if you are not improving within the next THREE days. [NOTE: If X-rays were taken, they will be reviewed by a radiologist. You will be notified of any new findings that may affect your care.] Get Prompt Medical Attention if any of the following occur: -- Pain or swelling increases -- Injured arm or leg becomes cold, blue, numb or tingly -- Redness, warmth or drainage from the skin Contusion:Lower Extremity You have a CONTUSION of your LOWER extremity (leg, knee, ankle, foot, or toes). This causes local pain, swelling and sometimes bruising. There are no broken bones. This injury may take from a few days to a few weeks to heal. Home Care: 1) Keep your leg elevated to reduce pain and swelling. When sleeping, place a pillow under the injured leg. When sitting, support the injured leg so it is level with your waist. This is very important during the first 48 hours. 2) If CRUTCHES have been advised, do not bear full weight on the injured leg until you can do so without pain. You may return to sports when you are able to hop and run on the injured leg without pain. 3) Apply an ice pack (ice cubes in a plastic bag, wrapped in a towel) over the injured area for 20 minutes every 1-2 hours the first day for pain relief. Continue this 3-4 times a day until the pain and swelling goes away. 4) You may use acetaminophen (Tylenol) or ibuprofen (Motrin, Advil) to control pain, unless another pain medicine was prescribed. [ NOTE : If you have chronic liver or kidney disease or ever had a stomach ulcer or GI bleeding, talk with your doctor before using these medicines.] Follow Up with your doctor or this facility if you are not starting to improve within the next THREE days. [NOTE: If X-rays were taken, they will be reviewed by a radiologist. You will be notified of any new findings that may affect your care.] Get Prompt Medical Attention if any of the following occur: -- Pain or swelling increases -- Toes become cold, blue, numb or tingly -- Redness, warmth or drainage from the skin Contusion: Foot You have a CONTUSION of your foot. This causes local pain, swelling and sometimes bruising. There are no broken bones. This injury may take from a few days to a few weeks to heal. Home Care: 1) Keep your LEG elevated to reduce pain and swelling. This is very important during the first 48 hours. If walking causes pain, stay off the injured leg until you can walk without pain. 2) If CRUTCHES have been advised, do not bear full weight on the injured leg until you can do so without pain. You may return to sports when you are able to hop and run on the injured leg without pain. 3) Make an ice pack (ice cubes in a plastic bag, wrapped in a towel) and apply for 20 minutes every 1-2 hours the first day. Continue this 3-4 times a day until the swelling goes down. 4) You may use acetaminophen (Tylenol) or ibuprofen (Motrin, Advil) to control pain, unless another pain medicine was prescribed. [ NOTE : If you have chronic liver or kidney disease or ever had a stomach ulcer or GI bleeding, talk with your doctor before using these medicines.] Follow Up with your doctor or this facility if you are not starting to improve within the next THREE days. [NOTE: If X-rays were taken, they will be reviewed by a radiologist. You will be notified of any new findings that may affect your care.] Get Prompt Medical Attention if any of the following occur: -- Pain or swelling increases -- Toes become cold, blue, numb or tingly -- Redness, warmth or drainage from the skin Naproxen Sodium Oral tablet What is this medicine? NAPROXEN (na PROX en) is a non-steroidal anti-inflammatory drug (NSAID). It is used to reduce swelling and to treat pain. This medicine may be used for dental pain, headache, or painful monthly periods. It is also used for painful joint and muscular problems such as arthritis, tendinitis, bursitis, and gout. How should I use this medicine? Take this medicine by mouth with a glass of water. Follow the directions on the prescription label. Take it with food if your stomach gets upset. Try to not lie down for at least 10 minutes after you take it. Take your medicine at regular intervals. Do not take your medicine more often than directed. Long-term, continuous use may increase the risk of heart attack or stroke. A special MedGuide will be given to you by the pharmacist with each prescription and refill. Be sure to read this information carefully each time. Talk to your motion picture set up worker regarding the use of this medicine in children. Special care may be needed. What side effects may I notice from receiving this medicine? Side effects that you should report to your doctor or health medical care administrator as soon as possible: black or bloody stools, blood in the urine or vomit blurred vision chest pain difficulty breathing or wheezing nausea or vomiting severe stomach pain skin rash, skin redness, blistering or peeling skin, hives, or itching slurred speech or weakness on one side of the body swelling of eyelids, throat, lips unexplained weight gain or swelling unusually weak or tired yellowing of eyes or skin Side effects that usually do not require medical attention (report to your doctor or health medical care administrator if they continue or are bothersome): constipation headache heartburn What may interact with this medicine? alcohol aspirin cidofovir diuretics lithium methotrexate other drugs for inflammation like ketorolac or prednisone pemetrexed probenecid warfarin What if I miss a dose? If you miss a dose, take it as soon as you can. If it is almost time for your next dose, take only that dose. Do not take double or extra doses. Where should I keep my medicine? Keep out of the reach of children. Store at room temperature between 15 and 30 degrees C (59 and 86 degrees F). Keep container tightly closed. Throw away any unused medicine after the expiration date. What should I tell my health care provider before I take this medicine? They need to know if you have any of these conditions: asthma cigarette smoker drink more than 3 alcohol containing drinks a day heart disease or circulation problems such as heart failure or leg edema (fluid retention) high blood pressure kidney disease liver disease stomach bleeding or ulcers an unusual or allergic reaction to naproxen, aspirin, other NSAIDs, other medicines, foods, dyes, or preservatives or trying to get breast-feeding What should I watch for while using this medicine? Tell your doctor or health medical care administrator if your pain does not get better. Talk to your doctor before taking another medicine for pain. Do not treat yourself. This medicine does not prevent heart attack or stroke. In fact, this medicine may increase the chance of a heart attack or stroke. The chance may increase with longer use of this medicine and in people who have heart disease. If you take aspirin to prevent heart attack or stroke, talk with your doctor or health medical care administrator. Do not take other medicines that contain aspirin, ibuprofen, or naproxen with this medicine. Side effects such as stomach upset, nausea, or ulcers may be more likely to occur. Many medicines available without a prescription should not be taken with this medicine. This medicine can cause ulcers and bleeding in the stomach and intestines at any time during treatment. Do not smoke cigarettes or drink alcohol. These increase irritation to your stomach and can make it more susceptible to damage from this medicine. Ulcers and bleeding can happen without warning symptoms and can cause . You may get drowsy or dizzy. Do not drive, use machinery, or do anything that needs mental alertness until you know how this medicine affects you. Do not stand or sit up quickly, especially if you are an older patient. This reduces the risk of dizzy or fainting spells. This medicine can cause you to bleed more easily. Try to avoid damage to your teeth and gums when you brush or floss your teeth. You have been given the following additional information: Syncope, Vasovagal Syncope, Unk Cause Contusion, Soft Tissue Contusion, Lower Extremity Contusion, Foot Naproxen Sodium Oral tablet (Electronically signed by Dania Brian A.R.N.P. 02/11/2017 12:58)
--- NOTE | 2017-02-11 12:59 | ED MED RECONCILIATION SUMMARY ---
Patient: JACOBY DEL VALLE Medication Reconciliation Report [facility] VisitID: [id number] [address] [place] [address] 56y, F Registration Date/Time: 02/10/2017 Weight: 148.3 kg Height/Length: 64 in. BMI: 56.2 ALLERGIES: Morphine Sulfate, Sulfa Antibiotics, Vancomycin The patient's Home Medications are listed below: THE FOLLOWING MEDICATIONS NEED TO BE RECONCILED: Albuterol Sulfate Inhalation Atorvastatin Calcium Oral 40 mg, daily BuPROPion HBr Oral daily Flonase Nasal FLUoxetine HCl Oral 90mg, daily Gabapentin Oral 750mg, 3x a day HumaLOG Subcutaneous Lantus Subcutaneous Lasix Oral 40 mg, daily Levothyroxine Sodium Oral 1000mcg, daily Losartan Potassium Oral 25 mg, daily Metoprolol Tartrate Oral 50 mg, daily Naproxen Oral 250 mg, Q12H Omeprazole Oral 40 mg, 2x a day The source(s) of the original Home Medication information: Not obtained. The following Medications were given to the patient in the Emergency Department: Hydrocodone-APAP [PO] PO 1 tab, administered: 02/10/2017 9:10:00 PM IV NS IV Fluids bolus 1000 mL over 1 hour(s), administered: 02/10/2017 9:44:00 PM Toradol [IVP] IVP 30 mg, administered: 02/10/2017 9:55:00 PM The following Medications were prescribed to the patient: Naprosyn 500 mg tablets: take 1 orally every 12 hours as needed for pain. Dispense twenty (20). No refills. Substitution is permissible. -- Dania Brian A.R.NJonesP.
--- NOTE | 2017-02-11 12:59 | ED MAR SUMMARY ---
..... Medication Administration Record Located Within [facility] [address] [place] [address] Patient: JACOBY DEL VALLE Visit ID: [id number] 56y, F Weight: 148.3 kg Height/Length: 64 in BMI: 56.2 ALLERGIES: Morphine Sulfate, Sulfa Antibiotics, Vancomycin Given 21:10 02/10/2017 Mateo Lorenzo RJonesNJones Medication Administered: HYDROCODONE-APAP [PO] (HYDROCODONE-ACETAMINOPHEN), Dose: 1 tab 5/325 mg Tablets PO. Medication Ordered: Hydrocodone-APAP PO 5/325 mg (NOW, HIGH ALERT MEDICATION). Start 21:44 02/10/2017 Tasneem Brenard R.N., Stop 23:22 02/10/2017 Mateo Lorenzo RJonesN. Medication Administered: IV NS (SALINE), Dose: IV Fluids, Bolus: 1000 mL over 1 hour(s), Dispensed: 1000 mL bag, Site: #1 left hand. Medication Ordered: IV NS : initial bolus 1000 mL (1000 mL/hr), then none - (NOW). Given 21:55 02/10/2017 Mateo Lorenzo RJonesNJones Medication Administered: TORADOL [IVP], Dose: 30 mg IVP over 2 minute(s), Site: #1 left hand. Medication Ordered: Toradol IV 30 mg (NOW).
== END 2017-02-10 23:32 | disposition home or self-care (01) ==
LOC: ED SRH 18:09
DX: S90.31XA Contusion of right foot, initial encounter (principal); Z79.899 Other long term (current) drug therapy; S90.32XA Contusion of left foot, initial encounter; S90.02XA Contusion of left ankle, initial encounter; R55 Syncope and collapse; W01.198A Fall on same level from slipping, tripping and stumbling with subsequent striking against other object, initial encounter; Y93.9 Activity, unspecified; Y92.9 Unspecified place or not applicable; Y99.9 Unspecified external cause status; E11.9 Type 2 diabetes mellitus without complications